=== PATIENT | male | born 1945 | race Caucasian/White ===

== ENCOUNTER 2017-09-15 08:45 | Emergency (ER) | payer OTHER ==
[~2017-09-15] VITALS: Ht 175.3 cm; Wt 84.0 kg
[2017-09-15 08:56] VITALS: BP 181/80; PULSE 62; RESP 16; TEMP 97.4; O2SAT 98
[2017-09-15] MEDS ORDERED: ACETAMINOPHEN/HYDROcodone 325 MG/5 MG TAB PO ONE (10:00)
[2017-09-15] MEDS ORDERED: SODIUM CHLORIDE 0.9% FLUSH 10 ML FLUSH IVF PRN (10:00)
[2017-09-15 10:06] LABS: BILIRUBIN, URINE NEG (NEG); BLOOD, URINE LARGE (NEG); GLUCOSE,URINE NEG (NEG); KETONE, URINE NEG (NEG); NITRITE,URINE NEG (NEG); URINE COLOR YELLOW (YELLW/STRAW); URINE LEUKOCYTE ESTERASE NEG (NEG)
[2017-09-15 10:16] LABS: WBC, URINE 0-2 /hpf (0-5)
[2017-09-15 10:17] LABS: SQUAMOUS EPITHELIAL CELL URINE 0-2 /hpf (0-5)
--- NOTE | 2017-09-15 11:17 | PD ---
HPI . Flank pain Chief Complaint: Flank/Kidney Pain Time Seen by Provider: 09:53 Travel History International Travel<30 days: No Contact w/Intl Traveler<30days: No Traveled to known affect area: No History of Present Illness HPI Patient presents with the acute onset of left flank pain. It started this morning. It has been continuous all morning. He describes a dull ache which he rates 3/10. He denies any nausea or vomiting and he fever. He does report decreased urinary output. He states he has had a previous kidney stone and that his symptoms are similar. PFSH Past Medical History Diminished Hearing: No Tetanus Vaccination: Unknown Influenza Vaccination: Yes Social History Alcohol Use: No Tobacco Use: No Substance Use: No Allergies-Medications (Allergen,Severity, Reaction): Coded Allergies: No Known Allergies (Unverified , 09/15/17) Reported Meds & Prescriptions Reported Meds & Active Scripts Active Flomax (Tamsulosin HCl) 0.4 Mg Cap 0.4 Mg PO HS Ibuprofen 800 Mg Tab 800 Mg PO Q8H PRN Phenergan (Promethazine HCl) 25 Mg Tablet 25 Mg PO Q6H PRN [place] (Hydrocodone-Acetaminophen) 5 Mg-325 Mg Tab 1 Tab PO Q4H PRN Review of Systems Except as stated in HPI: all other systems reviewed are Neg Physical Exam Narrative GENERAL: Patient looks pretty comfortable. He is lying on the stretcher. SKIN: warm/dry. Normal color. HEAD: Normocephalic. Atraumatic. EYES: Pupils equal and round. Extraocular movements are intact. ENT: Mucous membranes pink and moist. NECK: Supple. Full range of motion without pain.. CARDIOVASCULAR: Regular rate and rhythm. RESPIRATORY: No accessory muscle use. Clear to auscultation. Breath sounds equal bilaterally. GASTROINTESTINAL: Abdomen soft. Nontender. Bowel sounds present. Nondistended. : No CVA tenderness elicited. MUSCULOSKELETAL: No obvious deformities. Normal muscle tone. NEUROLOGICAL: Awake and alert. No obvious cranial nerve deficits. Motor grossly within normal limits. Normal speech. PSYCHIATRIC: Appropriate mood and affect; insight and judgment normal. Data Data Last Documented VS Vital Signs Date Time Temp Pulse Resp B/P (MAP) Pulse Ox O2 Delivery O2 Flow Rate FiO2 09/15/17 08:56 97.4 62 16 181/80 (113) 98 Orders Orders Ua Includes Microscopic (09/15/17 09:54) Ct Abd/Pel W/O Iv Contrast (09/15/17 09:54) Iv Access Insert/Monitor (09/15/17 09:54) Acetamin-Hydrocod 325-5 Mg ([place] 5-325 (09/15/17 10:00) Sodium Chloride 0.9% Flush (Ns Flush) (09/15/17 10:00) Labs Laboratory Tests Test 09/15/17 09:58 Urine Collection Type VOIDED Urine Color YELLOW Urine Turbidity CLEAR Urine pH 6.0 Urine Specific [place] GREATER/EQUAL 1.030 Urine Protein TRACE mg/dL Urine Glucose (UA) NEG mg/dL Urine Ketones NEG mg/dL Urine Occult Blood LARGE Urine Nitrite NEG Urine Bilirubin NEG Urine Urobilinogen 0.2 MG/DL Urine Leukocyte Esterase NEG Urine RBC 25-49 /hpf Urine WBC 0-2 /hpf Urine Squamous Epithelial Cells 0-2 /hpf Microscopic Urinalysis Comment MDM Medical Decision Making Medical Screen Exam Complete: Yes Emergency Medical Condition: Yes Differential Diagnosis Differential diagnosis of flank pain includes but is not limited to kidney stone , pyelonephritis, musculoskeletal pain, PE, AAA Narrative Course This patient presents with chief complaint of left flank pain. He feels that it is probably a kidney stone. His exam is benign. The patient's symptoms are pretty minor. I am treating him with oral analgesics while awaiting his workup. UA does show blood. [employer] has been queried and reviewed. Last Impressions Abdomen/Pelvis CT 09/15/17 0954 Signed Impressions: CONCLUSION: 1. 6 mm stone at the left UPJ/proximal left ureter. This causes mild dilatatio n of the left collecting system and left perinephric stranding. 2. 3 nonobstructing left renal stones seen in the collecting system. 3. Tiny 1 to 2 mm calcifications in the right kidney related either tiny stone s or medullary calcifications. This patient will need to see a urologist in the near future for follow-up. Diagnosis Primary Impression: Left flank pain Additional Impression: Obstruction of left ureteropelvic junction (UPJ) due to stone Referrals: Rajinder Bradley MD 2 days Patient Instructions: General Instructions, Kidney Stones (DC), Narcotic given in the ED Med/Other Pt SpecificInfo: Prescription(s) given Scripts Tamsulosin (Flomax) 0.4 Mg Cap 0.4 MG PO HS for Manage Prostate Problems, #30 CAP 0 Refills Prov: Sheryl Snyder MD 09/15/17 Ibuprofen (Ibuprofen) 800 Mg Tab 800 MG PO Q8H Y for Pain/Inflammation, #60 TAB 0 Refills Prov: Sheryl Snyder MD 09/15/17 Promethazine (Phenergan) 25 Mg Tablet 25 MG PO Q6H Y for NAUSEA OR VOMITING, #12 TAB 0 Refills Prov: Sheryl Snyder MD 09/15/17 Hydrocodone-Acetaminophen ([place]) 5 Mg-325 Mg Tab 1 TAB PO Q4H Y for PAIN, #12 TAB 0 Refills Prov: Sheryl Snyder MD 09/15/17 Disposition: 01 DISCHARGE HOME Condition: Stable Sheryl Snyder MD Sep 15, 2017 11:17
[2017-09-15] MEDS ORDERED: NORC5TAB PO (11:19)
[2017-09-15] MEDS ORDERED: TAMS5CAP PO (11:19)
[2017-09-15] MEDS ORDERED: PROM25TA10 PO (11:19)
[2017-09-15] MEDS ORDERED: IBUP1TAB7 PO (11:19)
--- NOTE | 2017-09-15 11:36 | RADRPT ---
EXAM DATE: 09/15/2017 11:08 AM EDT AGE/SEX: 72 years / Male INDICATIONS: Left flank pain. CLINICAL DATA: This is the patient's initial encounter. Patient reports that signs and symptoms have been present for 1 day and indicates a pain score of 2/10. MEDICAL/SURGICAL HISTORY: Renal calculi. None. RADIATION DOSE: 9.22 CTDI (mGy) COMPARISON: No prior exams available for comparison. TECHNIQUE: Multiple contiguous axial images were obtained through the abdomen. Images were obtained using multiple row detector helical technique. Using automated exposure control and adjustment of the mA and/or kV according to patient size, radiation dose was kept as low as reasonably achievable to o btain optimal diagnostic quality images. DICOM format image data is available electronically for rev iew and comparison. FINDINGS: Lower Lungs: There is minimal suspected atelectasis or scarring at the medial right lung base. Liver: The liver has a homogeneous density without space-occupying lesion. There is no dilation of th e biliary tree. Spleen: Homogeneous density without enlargement. Pancreas: Unremarkable without mass or calcification. Kidneys: There is a 6 mm calcification seen in the left UPJ/proximal left ureter. There is mild dila tation of the left collecting system. There is left perinephric stranding. There are at least 3 small nonobstructing renal stone seen in the mid and inferior left collecting system measuring up to 4 mm. There are a few tiny 1 to 2 mm calcification seen in the right kidney which may represent tiny stone s or medullary calcifications. Adrenal Glands: Unremarkable. Aorta: The aorta and proximal iliac vessels are grossly unremarkable without aneurysmal dilation. Bowel/Mesentery: The bowel loops are grossly unremarkable. The cecum and sigmoid colon have a normal configuration. Abdominal Wall: Intact. Retroperitoneum: No evidence of adenopathy in the retrocrural, para-aortic, or deep pelvic regions. Bladder: Contours are smooth. Reproductive Organs: Prostatic calcifications are present. Inguinal: There is a fat-containing left inguinal hernia. Bony Structures: There is chronic hypertrophic change at the pubic symphysis region. There is degene rative change of the lower lumbar spine. CONCLUSION: 1. 6 mm stone at the left UPJ/proximal left ureter. This causes mild dilatation of the left collecti ng system and left perinephric stranding. 2. 3 nonobstructing left renal stones seen in the collecting system. 3. Tiny 1 to 2 mm calcifications in the right kidney related either tiny stones or medullary calcifi cations. Electronically signed by: Jason Yan MD 09/15/2017 11:35 AM EDT
== END 2017-09-15 11:56 | disposition home or self-care (01) ==
LOC: PHED 08:45
DX: N20.0 Calculus of kidney (principal)
CPT/HCPCS: 74176; 81001; 99284